=== PATIENT | female | born 1950 | race Caucasian/White ===

== ENCOUNTER → 2016-07-18 | Outpatient (CLI) | payer OTHER ==
[~2016-07-18] MED LIST: ALBU1AER9 INH; ALEN10TA3 PO; ASPI81TA28 PO; ATOR-54 PO; CHOL2000 PO; ESOM20CA PO; FERR325T5 PO; FLUT0.15 NAE; FRRS300 PO; NITR-5 PO; SERT50TA PO; SUMA50TA15 PO; VITA200C5 PO; VNTHFA/IN INH; ZNT150 PO; [UNRECOGNIZED DRUG - CODE] PO
[2016-07-18 09:42] LABS: BASO % 0.4 %; BASO ABS # 0.03 K/uL (0-0.2); COMPLETE YES; EOS % 2.7 %; HEMATOCRIT 43.9 % (37-47); IG% 0.1 %; LYMPH % 19.5 %; LYMPH ABS # 1.44 K/uL (1.2-3.4); MEAN CELL VOLUME 92.6 fL (80-100); MEAN CORPUSCULAR HEMOGLOBIN 31.4 pg (25-34); MEAN CORPUSCULAR HGB CONC 33.9 g/dl (32-36); MEAN PLATELET VOLUME 9.9 fL (7.4-10.4); MONO % 9.1 %; NEUT % 68.2 %; PLATELET COUNT 209 K/uL (130-400); RED BLOOD COUNT 4.74 M/uL (4.2-5.4); WHITE BLOOD COUNT 7.37 K/uL (4.8-10.8)
[2016-07-18 10:39] LABS: CHOLESTEROL/HDL RATIO 3.4; THYROID STIMULATING HORMONE 2.78 uIu/ml (0.300-4.500)
== END | disposition home or self-care (01) ==
LOC: C.LAB1850 08:55
PROVIDERS: ATTEND Internal Medicine
DX: E78.5 Hyperlipidemia, unspecified (principal); Z86.2 Personal history of diseases of the blood and blood-forming organs and certain disorders involving the immune mechanism; N39.41 Urge incontinence; E55.9 Vitamin D deficiency, unspecified

== ENCOUNTER 2016-08-17 09:20 | Emergency (ER) | payer OTHER ==
[~2016-08-17] VITALS: Ht 149.9 cm; Wt 71.2 kg
[~2016-08-17 09:20] MED LIST changes: -ALEN10TA3 PO; -FERR325T5 PO; -NITR-5 PO; -VITA200C5 PO; -VNTHFA/IN INH; -[UNRECOGNIZED DRUG - CODE] PO
[2016-08-17 09:30] VITALS: TEMP 36.9; Ht 149.9 cm; Wt 71.2 kg
[2016-08-17] MEDS ORDERED: ONDANSETRON INJ 2 MG/ML 2 ML VIAL IV STA (09:46)
[2016-08-17] MEDS ORDERED: SODIUM CHLORIDE 0.9% 1000ML 1,000 ML IV STA (09:46)
[2016-08-17] MEDS ORDERED: KETOROLAC TROMETHAMINE 30 MG/ML VIAL IV STA (09:46)
--- NOTE | 2016-08-17 09:51 | EMERGENCY ROOM VISIT NOTE ---
History Report prepared by Kieran: Maxwell Child Under the Supervision of: Dr. Calvin Harvey D.O. First contact with patient: 09:36 Chief Complaint: BACK PAIN Stated Complaint: BACK AND LEG PAIN History of Present Illness The patient is a 66 year old female who presents to the Emergency Room with complaints of constant back pain for the past five days. The patient's caregiver states that the patient was trying to lift a lawnmower, and she got back pain and shooting pain down her leg. The patient's caregiver additionally states that the patient had back surgery in the past. The patient states that she additionally has abdominal pain. She also states that she goes to the bathroom very frequently. The patient states that she was given Tylenol, and this has helped her.pain. Source of History: patient, caregiver Onset: five days ago Position: back Timing: constant Associated Symptoms: + abdominal pain, + urinary symptoms Review of Systems See HPI for pertinent positives & negatives. A total of 10 systems reviewed and were otherwise negative. Past Medical & Surgical Medical Problems: (1) Abdominal pain (2) Anxiety (3) Bursitis of hip, right (4) Bursitis of hip, right (5) Chest pain (6) Chest pain (7) Depression (8) GERD (gastroesophageal reflux disease) (9) High cholesterol (10) Hypertension (11) Intractable vomiting (12) Lumbar stenosis (13) Mental Retardation Nos (14) Migraine Unspecified W/O Intract Mgrn W/O Status Migrainosus (15) Osteopenia (16) Overactive bladder Surgical Problems: (1) History of lumbosacral spine surgery Social History Problems: (1) Hearing impaired Family History Heart disease Social History Smoking Status: Never Smoker Alcohol Use: none Marital Status: Housing Status: lives with significant other Occupation Status: disabled Current/Historical Medications Scheduled Albuterol Hfa (Ventolin Hfa), 2-4 PUFFS INH Q6H Alendronate Sodium (Alendronate Sodium), 10 MG PO DAILY Aspirin (Aspirin Ec), 81 MG PO DAILY Atorvastatin (Lipitor), 20 MG PO HS Esomeprazole Magnesium (Nexium), 20 MG PO DAILY Fluticasone Propionate (Nasal) (Flonase Allergy Relief), 1 SPRAY RODGER BID Nitrofurantoin Monohyd Macrocr (Macrobid), 100 MG PO BID Ranitidine HCl (Ranitidine HCl), 150 MG PO QPM Sertraline (Zoloft), 75 MG PO DAILY Sumatriptan Succinate (Imitrex), 50 MG PO PRN Vitamin E (Vitamin E), 200 MG PO DAILY Allergies Coded Allergies: Tramadol (Verified Allergy, Unknown, HEADACHE,HIVES, 05/13/16) Physical Exam Vital Signs Date Time Temp Pulse Resp B/P Pulse Ox O2 Delivery O2 Flow Rate FiO2 08/17/16 12:31 77 18 120/80 98 08/17/16 11:10 76 18 123/81 97 Room Air 08/17/16 09:30 36.9 88 18 137/98 97 Room Air Physical Exam GENERAL: Patient is awake, alert, and in no acute distress. Patient is resting comfortably and showing no signs of anxiety EYES: The conjunctivae are clear. The pupils are round and reactive. EARS, NOSE, MOUTH AND THROAT: The nose is without any evidence of any deformity. Mucous membranes are moist tongue is midline NECK: The neck is nontender and supple. RESPIRATORY: Normal respiratory effort is noted there is no evidence of wheezing rhonchi or rales CARDIOVASCULAR: Regular rate and rhythm noted there no murmurs rubs or gallops normal S1 normal S2 GASTROINTESTINAL: Left lower quadrant tenderness to palpation. No guarding or rigidity. PELVIS: The Pelvis is stable. No tenderness to palpation is noted. BACK: No midline tenderness. Left CVA tenderness to percussion. Range of motion is limited. MUSCULOSKELETAL/EXTREMITIES: There is no evidence of gross deformity full range of motion is noted in the hips and shoulders SKIN: There is no obvious evidence of any rash. There are no petechiae, pallor or cyanosis noted. NEUROLOGIC: Patient is awake alert and oriented x3 strength is symmetric patellar reflexes are 2+ bilaterally. Chilo's tendon reflex is 2+ bilaterally. Great toe raise is symmetric. Medical Decision & Procedures ER Provider Diagnostic Interpretation: CT results as stated below per my review and radiologist interpretation. CT SCAN OF THE ABDOMEN AND PELVIS WITHOUT CONTRAST CLINICAL HISTORY: left flank pain COMPARISON STUDY: 06/02/2016 TECHNIQUE: CT scan of the abdomen and pelvis was performed from the lung bases to the proximal femurs. Images are reviewed in the axial, sagittal, and coronal planes. IV contrast was not administered for this examination. CT DOSE: 352.71 mGy.cm FINDINGS: Lower chest: There are minor basilar atelectatic changes. There is a hiatal hernia. Liver: The unenhanced liver is normal in size, contour, and attenuation. There is no intrahepatic biliary ductal dilatation. Gallbladder: Unremarkable. Spleen: Normal in size and attenuation. Pancreas: Unremarkable. Adrenal glands: Unremarkable. Kidneys: There is a 2 mm left renal calcification. There is no hydronephrosis. No ureteral or bladder calculi are visualized. Bowel: There are no transition zones indicate bowel obstruction. There is no acute diverticulitis. There are no findings to indicate acute appendicitis. Peritoneum: There is no intraperitoneal free air or abdominal ascites. Vasculature: The abdominal aorta is normal in course and caliber. Adenopathy: None. Pelvic viscera: The bladder, and pelvic viscera are unremarkable. Skeletal structures: There are postsurgical changes in the lumbar spine. IMPRESSION: 1. 2 mm left renal calcification 2. No ureteral or bladder calculi identified. No evidence of hydronephrosis 3. No evidence of bowel obstruction. No evidence of free air 4. No evidence of acute appendicitis. No evidence of acute diverticulitis. Electronically signed by: Josemanuel Ziegler M.D. 08/17/2016 10:34 AM Dictated Date/Time: 08/17/2016 10:29 AM Laboratory Results 08/17/16 10:00 Red Blood Count 4.60, Mean Corpuscular Volume 93.3, Mean Corpuscular Hemoglobin 31.3, Mean Corpuscular Hemoglobin Concent 33.6, Mean Platelet Volume 10.0, Neutrophils (%) (Auto) 72.2, Lymphocytes (%) (Auto) 18.6, Monocytes (%) (Auto) 6.8, Eosinophils (%) (Auto) 1.9, Basophils (%) (Auto) 0.4, Neutrophils # (Auto) 5.30, Lymphocytes # (Auto) 1.37, Monocytes # (Auto) 0.50, Eosinophils # (Auto) 0.14, Basophils # (Auto) 0.03 08/17/16 10:00 Test 08/17/16 10:00 08/17/16 11:17 White Blood Count 7.35 K/uL (4.8-10.8) Red Blood Count 4.60 M/uL (4.2-5.4) Hemoglobin 14.4 g/dL (12.0-16.0) Hematocrit 42.9 % (37-47) Mean Corpuscular Volume 93.3 fL (80-100) Mean Corpuscular Hemoglobin 31.3 pg (25-34) Mean Corpuscular Hemoglobin Concent 33.6 g/dl (32-36) Platelet Count 200 K/uL (130-400) Mean Platelet Volume 10.0 fL (7.4-10.4) Neutrophils (%) (Auto) 72.2 % Lymphocytes (%) (Auto) 18.6 % Monocytes (%) (Auto) 6.8 % Eosinophils (%) (Auto) 1.9 % Basophils (%) (Auto) 0.4 % Neutrophils # (Auto) 5.30 K/uL (1.4-6.5) Lymphocytes # (Auto) 1.37 K/uL (1.2-3.4) Monocytes # (Auto) 0.50 K/uL (0.11-0.59) Eosinophils # (Auto) 0.14 K/uL (0-0.5) Basophils # (Auto) 0.03 K/uL (0-0.2) RDW Standard Deviation 45.6 fL (36.4-46.3) RDW Coefficient of Variation 13.4 % (11.5-14.5) Immature Granulocyte % (Auto) 0.1 % Immature Granulocyte # (Auto) 0.01 K/uL (0.00-0.02) Anion Gap 9.0 mmol/L (3-11) Est Creatinine Clear Calc Drug Dose 54.0 ml/min Estimated GFR () 79.4 Estimated GFR (Non- 68.5 BUN/Creatinine Ratio 15.1 (10-20) Calcium Level 8.9 mg/dl (8.5-10.1) Total Bilirubin 0.4 mg/dl (0.2-1) Direct Bilirubin < 0.1 mg/dl (0-0.2) Aspartate Amino Transf (AST/SGOT) 21 U/L (15-37) Alanine Aminotransferase (ALT/SGPT) 31 U/L (12-78) Alkaline Phosphatase 121 U/L (45-117) Total Protein 7.1 gm/dl (6.4-8.2) Albumin 3.9 gm/dl (3.4-5.0) Lipase 205 U/L (73-393) Urine Color YELLOW Urine Appearance CLEAR (CLEAR) Urine pH 6.5 (4.5-7.5) Urine Specific [place] 1.004 (1.000-1.030) Urine Protein NEG (NEG) Urine Glucose (UA) NEG (NEG) Urine Ketones NEG (NEG) Urine Occult Blood TRACE (NEG) Urine Nitrite NEG (NEG) Urine Bilirubin NEG (NEG) Urine Urobilinogen NEG (NEG) Urine Leukocyte Esterase MODERATE (NEG) Urine WBC (Auto) 1-5 /hpf (0-5) Urine RBC (Auto) 5-10 /hpf (0-4) Urine Hyaline Casts (Auto) 0 /lpf (0-5) Urine Epithelial Cells (Auto) >30 /lpf (0-5) Urine Bacteria (Auto) NEG (NEG) Laboratory results per my review. Medications Administered Medications (Trade) Dose Ordered Sig/Oliver Route Start Time Stop Time Status Last Admin Dose Admin Ketorolac Tromethamine 30 mg 30 mg NOW STAT IV 08/17/16 09:46 08/17/16 09:48 DC 08/17/16 10:08 30 MG Sodium Chloride (Nss 1000ml) 1,000 ml @ 999 mls/hr Q1H1M STAT IV 08/17/16 09:46 08/17/16 10:46 DC 08/17/16 10:07 999 MLS/HR Ondansetron HCl (Zofran Inj) 4 mg NOW STAT IV 08/17/16 09:46 08/17/16 09:48 DC 08/17/16 10:07 4 MG Nitrofurantoin Macrocrystals (Macrobid Cap) 100 mg NOW STAT PO 08/17/16 12:04 08/17/16 12:05 DC 08/17/16 12:24 100 MG ED Course 0936: The patient was evaluated in room B11. A complete history and physical examination were performed. 0946: Zofran Inj 4mg IV, NSS 1,000 ml @ 999 mls/hr IV, Toradol Inj 30mg IV 1204: Macrobid Cap 100mg PO 1209: Upon reevaluation, the patient is feeling better. I discussed the results and treatment plan with her. She verbalized agreement of the treatment plan. She was discharged home. Medical Decision Differential diagnosis: Etiologies such as musculoskeletal, disc herniation, fracture, aortic disease, metastatic disease, cord compression, discitis, infection, renal colic, gastrointestinal, acute exacerbation of chronic back pain, sciatica, cauda equina, as well as others were entertained. Nursing notes reviewed. Additional history is obtained from the caregiver. The patient is a 66-year-old female who presented to the emergency department with a caregiver for an evaluation of left flank pain. The patient has back pain which she has had in the past. She doesn't a history of chronic back pain. The patient did not have midline pain. She did have CVA tenderness to percussion. I was wondering whether or not the patient could have a kidney stone or urinary infection. Her reflexes appeared intact. She was able to ambulate without difficulty. I discussed the patient's laboratory and radiographic studies with her. She was found have signs of possible urinary tract infection and was started on antibiotics. She was treated with IV fluids IV pain medication in the emergency department. On subsequent reevaluation she was feeling much better. She was encouraged to rest and avoid any strenuous activity. She was also encouraged to continue all medications as prescribed. She was also encouraged to follow-up with primary care physician for reevaluation this week and for possible referral to her back specialist if symptoms don't improve. Otherwise she was encouraged to return to the emergency department if symptoms worsen or if need arises. Impression Primary Impression: Left-sided back pain Additional Impression: UTI (urinary tract infection) Scribe Attestation The scribe's documentation has been prepared under my direction and personally reviewed by me in its entirety. I confirm that the note above accurately reflects all work, treatment, procedures, and medical decision making performed by me. Departure Information Dispostion Home / Self-Care Prescriptions Nitrofurantoin Monohyd Macrocr (Macrobid) 100 Mg Cap 100 MG PO BID, #14 CAP Prov: Calvin Harvey, DO 08/17/16 Referrals RV. Gallagher MD (PCP) Forms HOME CARE DOCUMENTATION FORM, IMPORTANT VISIT INFORMATION Patient Instructions ED Back Pain Acute Chronic, My [facility], Urinary Tract Infecs Women Additional Instructions Continue all medications as prescribed. Continue using Motrin and Tylenol as directed for pain. Follow-up with your primary care physician for further evaluation of back pain continues. Avoid any strenuous activity or heavy lifting. Problem Qualifiers
--- NOTE | 2016-08-17 10:36 | DIAGNOSTIC IMAGING REPORT ---
CT SCAN OF THE ABDOMEN AND PELVIS WITHOUT CONTRAST CLINICAL HISTORY: left flank pain COMPARISON STUDY: 06/02/2016 TECHNIQUE: CT scan of the abdomen and pelvis was performed from the lung bases to the proximal femurs. Images are reviewed in the axial, sagittal, and coronal planes. IV contrast was not administered for this examination. CT DOSE: 352.71 mGy.cm FINDINGS: Lower chest: There are minor basilar atelectatic changes. There is a hiatal hernia. Liver: The unenhanced liver is normal in size, contour, and attenuation. There is no intrahepatic biliary ductal dilatation. Gallbladder: Unremarkable. Spleen: Normal in size and attenuation. Pancreas: Unremarkable. Adrenal glands: Unremarkable. Kidneys: There is a 2 mm left renal calcification. There is no hydronephrosis. No ureteral or bladder calculi are visualized. Bowel: There are no transition zones indicate bowel obstruction. There is no acute diverticulitis. There are no findings to indicate acute appendicitis. Peritoneum: There is no intraperitoneal free air or abdominal ascites. Vasculature: The abdominal aorta is normal in course and caliber. Adenopathy: None. Pelvic viscera: The bladder, and pelvic viscera are unremarkable. Skeletal structures: There are postsurgical changes in the lumbar spine. IMPRESSION: 1. 2 mm left renal calcification 2. No ureteral or bladder calculi identified. No evidence of hydronephrosis 3. No evidence of bowel obstruction. No evidence of free air 4. No evidence of acute appendicitis. No evidence of acute diverticulitis. Electronically signed by: Josemanuel Ziegler M.D. 08/17/2016 10:34 AM Dictated Date/Time: 08/17/2016 10:29 AM
[2016-08-17 10:47] LABS: BASO % 0.4 %; BASO ABS # 0.03 K/uL (0-0.2); COMPLETE YES; EOS % 1.9 %; HEMATOCRIT 42.9 % (37-47); IG% 0.1 %; LYMPH % 18.6 %; LYMPH ABS # 1.37 K/uL (1.2-3.4); MEAN CELL VOLUME 93.3 fL (80-100); MEAN CORPUSCULAR HEMOGLOBIN 31.3 pg (25-34); MEAN CORPUSCULAR HGB CONC 33.6 g/dl (32-36); MONO % 6.8 %; NEUT % 72.2 %; PLATELET COUNT 200 K/uL (130-400); WHITE BLOOD COUNT 7.35 K/uL (4.8-10.8)
[2016-08-17] MEDS ORDERED: VITA200C5 PO (10:55)
[2016-08-17] MEDS ORDERED: VNTHFA/IN INH (10:55)
[2016-08-17] MEDS ORDERED: ALEN10TA3 PO (10:55)
[2016-08-17 11:08] LABS: ALT/SGPT 31 U/L (12-78); AST/SGOT 21 U/L (15-37); BLOOD UREA NITROGEN 13 mg/dl (7-18); BUN/CREATININE RATIO 15.1 (10-20); CALCIUM 8.9 mg/dl (8.5-10.1); CARBON DIOXIDE 27 mmol/L (21-32); CHLORIDE 106 mmol/L (98-107); CREATININE 0.88 mg/dl (0.60-1.20); GLUCOSE 103 mg/dl (70-99); POTASSIUM 3.7 mmol/L (3.5-5.1); SODIUM 142 mmol/L (136-145)
[2016-08-17 11:10] LABS: ALKALINE PHOSPHATASE 121 U/L (45-117)
[2016-08-17 11:51] LABS: MANUAL MICROSCOPIC REQUIRED? NO; REVIEW REQ? NO; URINE APPEARANCE CLEAR (CLEAR); URINE BILIRUBIN NEG (NEG); URINE COLOR YELLOW; URINE EPITHELIAL CELL AUTO >30 /lpf (0-5); URINE NITRITE NEG (NEG); URINE PH 6.5 (4.5-7.5); URINE SPECIFIC GRAVITY 1.004 (1.000-1.030); UROBILINOGEN NEG (NEG)
[2016-08-17] MEDS ORDERED: NITROFURANTOIN MONOHYDRATE 100 MG CAP PO STA (12:04)
[2016-08-17] MEDS ORDERED: NITR-5 PO (12:05)
[2016-08-17 12:31] VITALS: BP 120/80; PULSE 77; O2SAT 98
== END 2016-08-17 12:32 | disposition home or self-care (01) ==
LOC: C.EDB 09:22
DX: M54.5 Low back pain (principal); N39.0 Urinary tract infection, site not specified; N20.0 Calculus of kidney; F41.9 Anxiety disorder, unspecified; F32.9 Major depressive disorder, single episode, unspecified; K21.9 Gastro-esophageal reflux disease without esophagitis; E78.00 Pure hypercholesterolemia, unspecified; I10 Essential (primary) hypertension; F79 Unspecified intellectual disabilities; H91.90 Unspecified hearing loss, unspecified ear; Z82.49 Family history of ischemic heart disease and other diseases of the circulatory system; Z79.82 Long term (current) use of aspirin; Z88.5 Allergy status to narcotic agent

== ENCOUNTER → 2016-08-24 | Outpatient (CLI) | payer OTHER ==
[~2016-08-24] MED LIST changes: -ALBU1AER9 INH; +ALEN10TA3 PO; +FERR325T5 PO; -FRRS300 PO; +NITR-5 PO; +VITA200C5 PO; +VNTHFA/IN INH; +[UNRECOGNIZED DRUG - CODE] PO
== END | disposition home or self-care (01) ==
LOC: C.LAB1850 11:30
PROVIDERS: ATTEND Internal Medicine
DX: Z00.00 Encounter for general adult medical examination without abnormal findings (principal); Z11.59 Encounter for screening for other viral diseases

== ENCOUNTER → 2017-01-12 | Outpatient (CLI) | payer OTHER ==
[2017-01-12 16:47] LABS: URINE APPEARANCE CLEAR (CLEAR); URINE BILIRUBIN NEG (NEG); URINE COLOR YELLOW; URINE EPITHELIAL CELL AUTO >30 /lpf (0-5); URINE NITRITE NEG (NEG); URINE SPECIFIC GRAVITY 1.022 (1.000-1.030); UROBILINOGEN NEG (NEG); ZZUR CULT IF INDIC CLEAN CATCH YES
[2017-01-12 16:50] LABS: MANUAL MICROSCOPIC REQUIRED? NO; REVIEW REQ? YES
== END | disposition home or self-care (01) ==
LOC: C.LABSPEC 16:08
PROVIDERS: ATTEND Physician Assistant
DX: R10.9 Unspecified abdominal pain (principal)

== ENCOUNTER → 2017-01-17 | Outpatient (CLI) | payer OTHER ==
--- NOTE | 2017-01-17 10:04 | DIAGNOSTIC IMAGING REPORT ---
RENAL ULTRASOUND CLINICAL HISTORY: Acute right flank pain. Abnormal urinalysis. COMPARISON STUDY: CT of the abdomen and pelvis August 17, 2016. TECHNIQUE: Sonography of the kidneys and the urinary bladder was performed. FINDINGS: The right kidney measures 9.7 x 3.9 x 4 cm and the left measures 9.4 x 4.7 x 5.3 cm. There is mild renal cortical thinning. There is no hydronephrosis. Note is made of a 3 mm left renal calculus. Bladder was suboptimally assessed due to underdistention. Neither ureteral jet was identified. IMPRESSION: 1. No hydronephrosis. 2. Suspected 3 mm left renal calculus. Electronically signed by: Eric Lyles M.D. 01/17/2017 10:03 AM Dictated Date/Time: 01/17/2017 10:01 AM
== END | disposition home or self-care (01) ==
LOC: C.ULTR 09:18
PROVIDERS: ATTEND Physician Assistant
DX: R10.9 Unspecified abdominal pain (principal)

== ENCOUNTER 2017-01-18 07:55 | Emergency (ER) | payer OTHER ==
[~2017-01-18] VITALS: Ht 149.9 cm; Wt 69.8 kg
[~2017-01-18 07:55] MED LIST changes: -CHOL2000 PO; -FERR325T5 PO; -[UNRECOGNIZED DRUG - CODE] PO
[2017-01-18 07:59] VITALS: TEMP 36.6; Ht 149.9 cm; Wt 69.8 kg
--- NOTE | 2017-01-18 08:11 | EMERGENCY ROOM VISIT NOTE ---
History Report prepared by iKeran: Khanh Reed Under the Supervision of: Dr. James Chahal M.D. First contact with patient: 08:02 Chief Complaint: KIDNEY STONE Stated Complaint: LOWER BACK/SIDE PAIN History of Present Illness The patient is a 66 year old female who presents to the Emergency Room with complaints of constant, sharp, right lower quadrant pain beginning a week ago. She currently rates her discomfort a 6/10 in severity. The patient states that a week ago she was placed on Macrobid for hematuria, and her last dose was yesterday. The patient's daughter states that she had a urine analysis as well that showed gross amounts of blood and bacteria. The patient's records state that she was in the ED yesterday for similar symptoms and was told she had a kidney stone. They note that her ultrasound yesterday showed a left renal calculus. She reports that for the past week she has also been experiencing dysuria and a mildly decreased appetite. The patient notes that she has been taking Tylenol for pain, and her last dose was a few days ago. She states that she did not take Tylenol yesterday or today because it was not helping. The patient denies a history of kidney stones. She also denies vomiting and having a fever. She notes that 8 months ago she had back surgery. Source of History: patient, family Onset: week ago Position: abdomen (RLQ) Symptom Intensity: 6/10 Quality: sharp Timing: constant Associated Symptoms: + urinary symptoms (dysuria), No fevers, No vomiting Note: Associated symptoms: mildly decreased appetite Review of Systems See HPI for pertinent positives & negatives. A total of 10 systems reviewed and were otherwise negative. Past Medical & Surgical Medical Problems: (1) Abdominal pain (2) Anxiety (3) Bursitis of hip, right (4) Bursitis of hip, right (5) Chest pain (6) Chest pain (7) Depression (8) GERD (gastroesophageal reflux disease) (9) High cholesterol (10) Hypertension (11) Intractable vomiting (12) Lumbar stenosis (13) Mental Retardation Nos (14) Migraine Unspecified W/O Intract Mgrn W/O Status Migrainosus (15) Osteopenia (16) Overactive bladder Surgical Problems: (1) History of lumbosacral spine surgery Social History Problems: (1) Hearing impaired Family History Heart disease Social History Smoking Status: Never Smoker Alcohol Use: none Marital Status: Housing Status: lives with significant other Occupation Status: disabled Current/Historical Medications Scheduled Albuterol Hfa (Ventolin Hfa), 2-4 PUFFS INH Q6H Aspirin (Aspirin Ec), 81 MG PO DAILY Atorvastatin (Lipitor), 20 MG PO HS Cholecalciferol (Vitamin D3), 2,000 UNITS PO QAM Esomeprazole Magnesium (Nexium), 20 MG PO DAILY Ferrous Sulfate (Ferrous Sulfate), 325 MG PO WK Fluticasone Propionate (Nasal) (Flonase Allergy Relief), 1 SPRAY RODGER BID Ranitidine HCl (Ranitidine HCl), 150 MG PO QPM Sertraline (Zoloft), 75 MG PO DAILY Sumatriptan Succinate (Imitrex), 50 MG PO PRN Vitamin E (Vitamin E), 400 MG PO DAILY Zoledronic Acid (Zoledronic Acid), 4 MG PO QPM Allergies Coded Allergies: Tramadol (Verified Allergy, Unknown, HEADACHE,HIVES, 01/18/17) Physical Exam Vital Signs Date Time Temp Pulse Resp B/P (MAP) Pulse Ox O2 Delivery O2 Flow Rate FiO2 01/18/17 10:54 74 18 119/72 98 01/18/17 10:03 72 12 127/78 97 Room Air 01/18/17 07:59 36.6 88 18 151/88 96 Room Air Physical Exam GENERAL: Patient is well appearing and in mild distress. HEENT: No acute trauma, normocephalic atraumatic, mucous membranes moist, no nasal congestion, no scleral icterus. NECK: No stridor, no adenopathy, no meningismus, trachea is midline. LUNGS: No dyspnea. Clear to auscultation and equal bilaterally. No wheeze, no rhonchi. HEART: Regular rate and rhythm. No murmurs, rubs, gallops appreciated. ABDOMEN: Soft, mild right lower quadrant is tender to palpation, bowel sounds positive, no masses appreciated, no peritonitis. BACK: No midline tenderness, Mild CVA tenderness to palpation EXTREMITIES: Normal motion all extremities, no cyanosis, no edema. NEUROLOGIC: Awake, interactive, hard of hearing, no acute motor or sensory deficits, no focal weakness, cranial nerves grossly intact. SKIN: No rash, no jaundice, no diaphoresis. Medical Decision & Procedures ER Provider Diagnostic Interpretation: CT results as stated below per interpretation by me and the radiologist: ABD/PELVIS IV CONTRAST ONLY CT DOSE: 367.76 mGy.cm HISTORY: Flank pain RLQ pain TECHNIQUE: Multiaxial CT images of the abdomen and pelvis were performed following the use of intravenous contrast. A dose lowering technique was utilized adhering to the principles of ALARA. COMPARISON STUDY: 08/17/2016 FINDINGS: Stable fixed hiatal hernia. Liver spleen and pancreas are uniform. Kidneys negative for hydronephrosis. Adrenal glands are normal. Nonobstructive bowel pattern. Normal appendix. Bladder is midline. Postoperative changes consistent with L3-L5 laminectomy and fusion. Maximum appendiceal diameter is 5 mm and is air-containing. No significant periappendiceal inflammatory change. IMPRESSION: No acute process in the abdomen or pelvis. No change from the prior study. Fixed hiatal hernia unchanged The above report was generated using voice recognition software. It may contain grammatical, syntax or spelling errors. Electronically signed by: Jeffry Ojeda M.D. 01/18/2017 9:12 AM Dictated Date/Time: 01/18/2017 9:03 AM Laboratory Results 01/18/17 08:05 Red Blood Count 4.82, Mean Corpuscular Volume 94.4, Mean Corpuscular Hemoglobin 30.7, Mean Corpuscular Hemoglobin Concent 32.5, Mean Platelet Volume 9.7, Neutrophils (%) (Auto) 79.0, Lymphocytes (%) (Auto) 8.2, Monocytes (%) (Auto) 6.5, Eosinophils (%) (Auto) 5.7, Basophils (%) (Auto) 0.2, Neutrophils # (Auto) 7.30, Lymphocytes # (Auto) 0.76, Monocytes # (Auto) 0.60, Eosinophils # (Auto) 0.53, Basophils # (Auto) 0.02 01/18/17 08:05 Test 01/18/17 08:05 01/18/17 10:00 White Blood Count 9.25 K/uL (4.8-10.8) Red Blood Count 4.82 M/uL (4.2-5.4) Hemoglobin 14.8 g/dL (12.0-16.0) Hematocrit 45.5 % (37-47) Mean Corpuscular Volume 94.4 fL (80-100) Mean Corpuscular Hemoglobin 30.7 pg (25-34) Mean Corpuscular Hemoglobin Concent 32.5 g/dl (32-36) Platelet Count 197 K/uL (130-400) Mean Platelet Volume 9.7 fL (7.4-10.4) Neutrophils (%) (Auto) 79.0 % Lymphocytes (%) (Auto) 8.2 % Monocytes (%) (Auto) 6.5 % Eosinophils (%) (Auto) 5.7 % Basophils (%) (Auto) 0.2 % Neutrophils # (Auto) 7.30 K/uL (1.4-6.5) Lymphocytes # (Auto) 0.76 K/uL (1.2-3.4) Monocytes # (Auto) 0.60 K/uL (0.11-0.59) Eosinophils # (Auto) 0.53 K/uL (0-0.5) Basophils # (Auto) 0.02 K/uL (0-0.2) RDW Standard Deviation 47.4 fL (36.4-46.3) RDW Coefficient of Variation 13.7 % (11.5-14.5) Immature Granulocyte % (Auto) 0.4 % Immature Granulocyte # (Auto) 0.04 K/uL (0.00-0.02) Anion Gap 5.0 mmol/L (3-11) Est Creatinine Clear Calc Drug Dose 56.7 ml/min Estimated GFR () 85.2 Estimated GFR (Non- 73.5 BUN/Creatinine Ratio 18.9 (10-20) Calcium Level 8.9 mg/dl (8.5-10.1) Total Bilirubin 0.4 mg/dl (0.2-1) Direct Bilirubin 0.1 mg/dl (0-0.2) Aspartate Amino Transf (AST/SGOT) 62 U/L (15-37) Alanine Aminotransferase (ALT/SGPT) 101 U/L (12-78) Alkaline Phosphatase 138 U/L (45-117) Total Protein 7.2 gm/dl (6.4-8.2) Albumin 3.4 gm/dl (3.4-5.0) Lipase 368 U/L (73-393) Urine Color YELLOW Urine Appearance CLEAR (CLEAR) Urine pH 7.5 (4.5-7.5) Urine Specific [place] > 1.045 (1.000-1.030) Urine Protein NEG (NEG) Urine Glucose (UA) NEG (NEG) Urine Ketones NEG (NEG) Urine Occult Blood 1+ (NEG) Urine Nitrite NEG (NEG) Urine Bilirubin NEG (NEG) Urine Urobilinogen NEG (NEG) Urine Leukocyte Esterase NEG (NEG) Urine WBC (Auto) 1-5 /hpf (0-5) Urine RBC (Auto) 0-4 /hpf (0-4) Urine Hyaline Casts (Auto) 1-5 /lpf (0-5) Urine Epithelial Cells (Auto) 10-20 /lpf (0-5) Urine Bacteria (Auto) NEG (NEG) Laboratory results as reviewed by me. Medications Administered Medications (Trade) Dose Ordered Sig/Oliver Route Start Time Stop Time Status Last Admin Dose Admin Sodium Chloride 500 ml @ 999 mls/hr Q31M STAT IV 01/18/17 08:18 01/18/17 08:48 DC 01/18/17 08:18 999 MLS/HR Sodium Chloride 1,000 ml @ 999 mls/hr Q1H1M STAT IV 01/18/17 09:49 01/18/17 10:49 DC 01/18/17 09:49 999 MLS/HR ED Course 0804: The patient was evaluated in room A10. A complete history and physical exam was performed. 0818: Ordered Sodium Chloride 500 ml @ 999 mls/hr IV 0948: I reevaluated the patient. She has not produced a urine sample because she has been unable to void. Nursing states that she has had 700mL of saline. 0949: Ordered Sodium Chloride 1000 ml @ 999 mls/hr IV 1048: Reevaluated the patient. She is feeling better. Discussed results and discharge instructions: she verbalized understanding and agreement. The patient is ready for discharge. Medical Decision Differential: Appendicitis, Ovarian Torsion, , MSK, Diverticulitis, UTI, Renal Colic, Bowel Obstruction, Aortic Pathology, amongst other pathologies entertained. 66 yr old female arrives with ongoing right sided pain for over a week. She does not appear in very much distress and on exam with only mild RLQ TTP. Given prolonged symptoms and multiple testing prior to ED felt that going ahead with CT reasonable which revealed no acute findings. Labs did reveal mild LFT elevation above her baseline. She has absolutely no TTP over RUQ nor epigastrium and her CT reveals not GB abnormalities. She recently stopped macrobid, known to elevated LFTs which may be cause of this. I have advised she have LFTs rechecked in near future to verify they are improving. I have discussed need to RTED if worsening or no improvement. Stressed PCP follow up. Medication Reconcilliation Current Medication List: was personally reviewed by me Blood Pressure Screening Patient's blood pressure: Normal blood pressure Blood pressure disposition: Did not require urgent referral Impression Primary Impression: Abdominal pain, RLQ (right lower quadrant) Additional Impression: Elevated liver enzymes Scribe Attestation The scribe's documentation has been prepared under my direction and personally reviewed by me in its entirety. I confirm that the note above accurately reflects all work, treatment, procedures, and medical decision making performed by me. Departure Information Dispostion Home / Self-Care Referrals RV. Gallagher MD (PCP) Patient Instructions My [facility] Additional Instructions Do not take any more macrobid. Avoid use of Tylenol (acetaminophen) as this can worsen liver tests. Motrin, ibuprofen and other NSAIDs are fine. Follow up with primary provider in 3-7 days for recheck and likely repeat labs. Return if worsening pain, fevers, vomiting, change in pain, altered mental status or other concerns. Problem Qualifiers
[2017-01-18] MEDS ORDERED: SODIUM CHLORIDE 0.9% 500ML 500 ML IV STA (08:18)
[2017-01-18 08:28] LABS: BASO % 0.2 %; BASO ABS # 0.02 K/uL (0-0.2); COMPLETE YES; EOS % 5.7 %; HEMATOCRIT 45.5 % (37-47); IG% 0.4 %; LYMPH % 8.2 %; LYMPH ABS # 0.76 K/uL (1.2-3.4); MEAN CELL VOLUME 94.4 fL (80-100); MEAN CORPUSCULAR HEMOGLOBIN 30.7 pg (25-34); MEAN CORPUSCULAR HGB CONC 32.5 g/dl (32-36); MEAN PLATELET VOLUME 9.7 fL (7.4-10.4); MONO % 6.5 %; PLATELET COUNT 197 K/uL (130-400); RED BLOOD COUNT 4.82 M/uL (4.2-5.4); WHITE BLOOD COUNT 9.25 K/uL (4.8-10.8)
[2017-01-18] MEDS ORDERED: OPTIRAY 320 IV PRN (08:30)
[2017-01-18 08:36] LABS: BUN/CREATININE RATIO 18.9 (10-20); CALCIUM 8.9 mg/dl (8.5-10.1); CREATININE 0.83 mg/dl (0.60-1.20); POTASSIUM 3.5 mmol/L (3.5-5.1)
--- NOTE | 2017-01-18 09:13 | DIAGNOSTIC IMAGING REPORT ---
ABD/PELVIS IV CONTRAST ONLY CT DOSE: 367.76 mGy.cm HISTORY: Flank pain RLQ pain TECHNIQUE: Multiaxial CT images of the abdomen and pelvis were performed following the use of intravenous contrast. A dose lowering technique was utilized adhering to the principles of ALARA. COMPARISON STUDY: 08/17/2016 FINDINGS: Stable fixed hiatal hernia. Liver spleen and pancreas are uniform. Kidneys negative for hydronephrosis. Adrenal glands are normal. Nonobstructive bowel pattern. Normal appendix. Bladder is midline. Postoperative changes consistent with L3-L5 laminectomy and fusion. Maximum appendiceal diameter is 5 mm and is air-containing. No significant periappendiceal inflammatory change. IMPRESSION: No acute process in the abdomen or pelvis. No change from the prior study. Fixed hiatal hernia unchanged The above report was generated using voice recognition software. It may contain grammatical, syntax or spelling errors. Electronically signed by: Jeffry Ojeda M.D. 01/18/2017 9:12 AM Dictated Date/Time: 01/18/2017 9:03 AM
[2017-01-18] MEDS ORDERED: [UNRECOGNIZED DRUG - CODE] PO (09:29)
[2017-01-18] MEDS ORDERED: FERR325T5 PO (09:29)
[2017-01-18] MEDS ORDERED: CHOL2000 PO (09:29)
[2017-01-18] MEDS ORDERED: SODIUM CHLORIDE 0.9% 1000ML 1,000 ML IV STA (09:49)
[2017-01-18 10:16] LABS: URINE APPEARANCE CLEAR (CLEAR); URINE BILIRUBIN NEG (NEG); URINE COLOR YELLOW; URINE NITRITE NEG (NEG); URINE PH 7.5 (4.5-7.5); URINE SPECIFIC GRAVITY > 1.045 (1.000-1.030); UROBILINOGEN NEG (NEG); ZZUR CULT IF INDIC CLEAN CATCH NO
[2017-01-18 10:17] LABS: MANUAL MICROSCOPIC REQUIRED? NO; REVIEW REQ? NO
[2017-01-18 10:54] VITALS: BP 119/72; PULSE 74; O2SAT 98
== END 2017-01-18 10:56 | disposition home or self-care (01) ==
LOC: C.EDB 07:57 → C.EDA 10:56
DX: R10.31 Right lower quadrant pain (principal); R74.8 Abnormal levels of other serum enzymes; F41.9 Anxiety disorder, unspecified; F32.9 Major depressive disorder, single episode, unspecified; K21.9 Gastro-esophageal reflux disease without esophagitis; E78.00 Pure hypercholesterolemia, unspecified; F79 Unspecified intellectual disabilities; M85.80 Other specified disorders of bone density and structure, unspecified site; N32.81 Overactive bladder; H91.90 Unspecified hearing loss, unspecified ear; Z79.82 Long term (current) use of aspirin; Z79.899 Other long term (current) drug therapy

== ENCOUNTER → 2017-01-26 | Outpatient (CLI) | payer OTHER ==
[~2017-01-26] MED LIST changes: -ALEN10TA3 PO; +CHOL2000 PO; +FERR325T5 PO; -NITR-5 PO; +[UNRECOGNIZED DRUG - CODE] PO
[2017-01-26 12:09] LABS: URINE APPEARANCE CLEAR (CLEAR); URINE BILIRUBIN NEG (NEG); URINE COLOR YELLOW; URINE NITRITE NEG (NEG); URINE PH 5.5 (4.5-7.5); URINE SPECIFIC GRAVITY 1.012 (1.000-1.030); UROBILINOGEN NEG (NEG); ZZUR CULT IF INDIC CLEAN CATCH NO
[2017-01-26 12:13] LABS: MANUAL MICROSCOPIC REQUIRED? NO; REVIEW REQ? NO
[2017-01-26 12:46] LABS: ALKALINE PHOSPHATASE 139 U/L (45-117); ALT/SGPT 37 U/L (12-78); AST/SGOT 22 U/L (15-37)
== END | disposition home or self-care (01) ==
LOC: C.LAB1850 11:11
PROVIDERS: ATTEND Nurse Practitioner Adult Health
DX: R10.31 Right lower quadrant pain (principal); R74.8 Abnormal levels of other serum enzymes

== ENCOUNTER → 2017-03-06 | Outpatient (CLI) | payer OTHER | END | disposition home or self-care (01) | LOC: C.LAB1850 07:56 | PROVIDERS: ATTEND Nurse Practitioner Adult Health | DX: R74.8 Abnormal levels of other serum enzymes (principal) ==

== ENCOUNTER 2017-04-12 16:19 | Emergency (ER) | payer OTHER ==
[~2017-04-12] VITALS: Ht 149.9 cm; Wt 68.1 kg
[~2017-04-12 16:19] MED LIST changes: -ONDA4TAB10 SL
[2017-04-12 16:23] VITALS: TEMP 36.5; Ht 149.9 cm; Wt 68.1 kg
[2017-04-12] MEDS ORDERED: SODIUM CHLORIDE 0.9% 1000ML 1,000 ML IV STA (16:31)
[2017-04-12] MEDS ORDERED: ONDANSETRON INJ 2 MG/ML 2 ML VIAL IV STA (16:31)
[2017-04-12] MEDS ORDERED: ACETAMINOPHEN 325 MG TAB PO STA (16:31)
--- NOTE | 2017-04-12 16:42 | EMERGENCY ROOM VISIT NOTE ---
History Report prepared by Kieran: Eric Gurrola Under the Supervision of: Dr. Matt Cneteno M.D. First contact with patient: 16:29 Chief Complaint: URINARY SYMPTOMS Stated Complaint: URINE INCONTINENT,FREQUENT URINATION,VOMITING Nursing Triage Summary: Pt with caregiver from [facility]. Pt seen at PCP today, they think she has a UTI. After pt left the office, fam to have a headache, n/v, incontinent of diarrhea. History of Present Illness The patient is a 67 year old female with a history of frequent UTI's who presents to the Emergency Room with complaints of a worsening illness that started yesterday. Per the patient's caregiver, the patient had frequent urination yesterday and had one episode of urinary incontinence. The patient notes that overnight she had episodes of diarrhea. The patient was brought to see her primary care physician earlier today, and was diagnosed with a UTI and was put on Bactrim. She has not taken a dose yet. The patient did provide a urine sample there, and was noted to have blood and bacteria in her urine. Per the patient's caregiver, around a half hour after leaving the office, the patient had one episode of vomiting and complained of nausea and a headache. The patient was noted to be sweating before the vomiting spell. The patient's caregiver called the patient's primary care physician, and was advised to bring the patient here for evaluation. The patient was noted to be more quiet today than normal, per the caregiver. The patient did not have problems the day before yesterday. Currently, she says that she has no pain, other than a headache. Any known recent head injuries were denied. Source of History: patient, caregiver Onset: Yesterday Position: other (global - illness) Timing: worsening Associated Symptoms: + headache, + nausea, + vomiting, + diarrhea, + urinary symptoms Note: Associated symptoms: Noted to be more quiet today than normal. Any recent head injuries denied. Review of Systems See HPI for pertinent positives & negatives. A total of 10 systems reviewed and were otherwise negative. Past Medical & Surgical Medical Problems: (1) Abdominal pain (2) Anxiety (3) Bursitis of hip, right (4) Bursitis of hip, right (5) Chest pain (6) Chest pain (7) Depression (8) GERD (gastroesophageal reflux disease) (9) High cholesterol (10) Hypertension (11) Intractable vomiting (12) Lumbar stenosis (13) Mental Retardation Nos (14) Migraine Unspecified W/O Intract Mgrn W/O Status Migrainosus (15) Osteopenia (16) Overactive bladder Surgical Problems: (1) History of lumbosacral spine surgery Social History Problems: (1) Hearing impaired Family History Heart disease Social History Smoking Status: Never Smoker Alcohol Use: none Marital Status: Housing Status: lives with significant other Occupation Status: disabled Current/Historical Medications Scheduled Albuterol Hfa (Ventolin Hfa), 2-4 PUFFS INH Q6H Aspirin (Aspirin Ec), 81 MG PO DAILY Atorvastatin (Lipitor), 20 MG PO HS Cholecalciferol (Vitamin D3), 2,000 UNITS PO QAM Esomeprazole Magnesium (Nexium), 20 MG PO DAILY Ferrous Sulfate (Ferrous Sulfate), 325 MG PO WK Fluticasone Propionate (Nasal) (Flonase Allergy Relief), 1 SPRAY RODGER BID Ondasetron Odt (Zofran Odt), 4 MG SL Q6H Ranitidine HCl (Ranitidine HCl), 150 MG PO QPM Sertraline (Zoloft), 75 MG PO DAILY Sumatriptan Succinate (Imitrex), 50 MG PO PRN Vitamin E (Vitamin E), 400 MG PO DAILY Zoledronic Acid (Zoledronic Acid), 4 MG PO QPM Allergies Coded Allergies: Tramadol (Verified Allergy, Unknown, HEADACHE,HIVES, 04/12/17) Physical Exam Vital Signs Date Time Temp Pulse Resp B/P (MAP) Pulse Ox O2 Delivery O2 Flow Rate FiO2 04/12/17 20:22 77 18 127/80 98 04/12/17 19:37 73 18 133/77 98 Room Air 04/12/17 17:43 81 18 162/76 98 Room Air 04/12/17 16:23 36.5 80 18 177/94 98 Room Air Physical Exam GENERAL: Patient is in no acute distress. HEENT: No acute trauma, normocephalic atraumatic, mucous membranes moist, no nasal congestion, no scleral icterus. NECK: No stridor, no adenopathy, no meningismus, trachea is midline. LUNGS: Clear to auscultation bilaterally, no wheeze, no rhonchi, breath sounds equal. HEART: Without murmurs gallops or rubs, regular rate and rhythm. BACK: No flank discomfort to percussion. ABDOMEN: Soft, nontender, bowel sounds positive, no hernias, no peritonitis. EXTREMITIES: No cyanosis or edema, full range of motion of all the joints without pain or difficulty, no signs for acute trauma. NEUROLOGIC: Oriented x 3, no acute motor or sensory deficits, no focal weakness. SKIN: No rash, no jaundice, no diaphoresis. Medical Decision & Procedures ER Provider Diagnostic Interpretation: Radiology results as stated below per my review and radiologist interpretation: HEAD CT NONCONTRAST CT DOSE: 623.48 mGy.cm HISTORY: headache, tired TECHNIQUE: Multiaxial CT images of the head were performed without the use of intravenous contrast. Automated exposure control was utilized for this study. A dose lowering technique was utilized adhering to the principles of ALARA. Comparison: Head CT 06/02/2016. Findings: The paranasal sinuses and mastoid air cells are clear. The calvarium and skull base are intact. The ventricles and sulci are within normal limits. There is no mass, hematoma, midline shift, or acute infarct. Impression: No acute intracranial abnormality. Electronically signed by: Raghavendra Jaimes M.D. 04/12/2017 5:45 PM Dictated Date/Time: 04/12/2017 5:38 PM PA CHEST WITH ABDOMINAL SERIES CLINICAL HISTORY: Vomiting. FINDINGS: A PA chest radiograph is compared to study dated 05/30/2014 and correlated with chest CT dated 06/02/2016. The heart is top normal for projection. The pulmonary vascular is noncongested. A large hiatal hernia is identified with associated bibasilar atelectasis. No airspace consolidation is seen typical for pneumonia and there is no large pleural effusion. Chronic interstitial thickening is similar to previous. No pneumothorax is seen. The skeletal structures are osteopenic. The bony thorax is grossly intact. Supine and erect abdominal radiographs are correlated with abdominal CT dated 01/18/2017. There is a nonobstructed abdominal bowel gas pattern. Moderate colonic fecal retention is observed. No evidence of intraperitoneal free air is seen. There are no abnormal abdominal calcifications. There are postoperative changes from L4 to S1 spinal fusion. Mild lumbosacral spondylosis is observed. The lumbosacral spine and bony pelvis appear intact. IMPRESSION: 1. No active disease in the chest. 2. Large hiatal hernia with bibasilar atelectasis. 3. Nonobstructed abdominal bowel gas pattern noting moderate colonic fecal retention. Electronically signed by: Matt Cosby M.D. 04/12/2017 7:56 PM Dictated Date/Time: 04/12/2017 7:53 PM Laboratory Results 04/12/17 16:45 Red Blood Count 4.70, Mean Corpuscular Volume 93.0, Mean Corpuscular Hemoglobin 31.3, Mean Corpuscular Hemoglobin Concent 33.6, Mean Platelet Volume 9.8, Neutrophils (%) (Auto) 63.1, Lymphocytes (%) (Auto) 23.0, Monocytes (%) (Auto) 10.4, Eosinophils (%) (Auto) 2.8, Basophils (%) (Auto) 0.4, Neutrophils # (Auto ) 4.77, Lymphocytes # (Auto) 1.74, Monocytes # (Auto) 0.79, Eosinophils # (Auto ) 0.21, Basophils # (Auto) 0.03 04/12/17 16:45 Test 04/12/17 16:45 04/12/17 17:45 White Blood Count 7.56 K/uL (4.8-10.8) Red Blood Count 4.70 M/uL (4.2-5.4) Hemoglobin 14.7 g/dL (12.0-16.0) Hematocrit 43.7 % (37-47) Mean Corpuscular Volume 93.0 fL (80-100) Mean Corpuscular Hemoglobin 31.3 pg (25-34) Mean Corpuscular Hemoglobin Concent 33.6 g/dl (32-36) Platelet Count 201 K/uL (130-400) Mean Platelet Volume 9.8 fL (7.4-10.4) Neutrophils (%) (Auto) 63.1 % Lymphocytes (%) (Auto) 23.0 % Monocytes (%) (Auto) 10.4 % Eosinophils (%) (Auto) 2.8 % Basophils (%) (Auto) 0.4 % Neutrophils # (Auto) 4.77 K/uL (1.4-6.5) Lymphocytes # (Auto) 1.74 K/uL (1.2-3.4) Monocytes # (Auto) 0.79 K/uL (0.11-0.59) Eosinophils # (Auto) 0.21 K/uL (0-0.5) Basophils # (Auto) 0.03 K/uL (0-0.2) RDW Standard Deviation 45.7 fL (36.4-46.3) RDW Coefficient of Variation 13.4 % (11.5-14.5) Immature Granulocyte % (Auto) 0.3 % Immature Granulocyte # (Auto) 0.02 K/uL (0.00-0.02) Anion Gap 6.0 mmol/L (3-11) Est Creatinine Clear Calc Drug Dose 48.8 ml/min Estimated GFR () 72.8 Estimated GFR (Non- 62.8 BUN/Creatinine Ratio 14.3 (10-20) Lactic Acid Level 0.8 mmol/L (0.4-2.0) Calcium Level 8.9 mg/dl (8.5-10.1) Total Bilirubin 0.3 mg/dl (0.2-1) Aspartate Amino Transf (AST/SGOT) 28 U/L (15-37) Alanine Aminotransferase (ALT/SGPT) 35 U/L (12-78) Alkaline Phosphatase 157 U/L (45-117) Total Protein 7.4 gm/dl (6.4-8.2) Albumin 4.1 gm/dl (3.4-5.0) Globulin 3.3 gm/dl (2.5-4.0) Albumin/Globulin Ratio 1.3 (0.9-2) Urine Color YELLOW Urine Appearance CLEAR (CLEAR) Urine pH 8.0 (4.5-7.5) Urine Specific [place] 1.019 (1.000-1.030) Urine Protein NEG (NEG) Urine Glucose (UA) NEG (NEG) Urine Ketones NEG (NEG) Urine Occult Blood NEG (NEG) Urine Nitrite NEG (NEG) Urine Bilirubin NEG (NEG) Urine Urobilinogen NEG (NEG) Urine Leukocyte Esterase SMALL (NEG) Urine WBC (Auto) 1-5 /hpf (0-5) Urine RBC (Auto) 5-10 /hpf (0-4) Urine Hyaline Casts (Auto) 0 /lpf (0-5) Urine Epithelial Cells (Auto) 10-20 /lpf (0-5) Urine Bacteria (Auto) NEG (NEG) Laboratory results reviewed by me. Medications Administered Medications (Trade) Dose Ordered Sig/Oliver Route Start Time Stop Time Status Last Admin Dose Admin Ondansetron HCl (Zofran Inj) 4 mg NOW STAT IV 04/12/17 16:31 04/12/17 16:38 DC 04/12/17 16:51 4 MG Sodium Chloride 1,000 ml @ 999 mls/hr Q1H1M STAT IV 04/12/17 16:31 04/12/17 17:31 DC 04/12/17 16:51 999 MLS/HR Acetaminophen (Tylenol Tab) 650 mg NOW STAT PO 04/12/17 16:31 04/12/17 16:38 DC 04/12/17 16:56 650 MG Promethazine HCl 12.5 mg/Sodium Chloride 50.5 ml @ 204 mls/hr NOW STAT IV 04/12/17 18:32 04/12/17 18:46 DC 04/12/17 19:03 204 MLS/HR Ondansetron HCl (ZOFRAN ODT 4MG Home Pack) 1 homepack UD ONCE PO 04/12/17 20:15 04/12/17 20:16 DC 04/12/17 20:09 1 HOMEPACK ED Course 1630: The patient was evaluated in room B7. A complete history and physical exam was performed. 1631: Ordered Tylenol Tab 650 mg PO, NSS 1000 ml @ 999 mls/hr IV, Zofran Inj 4 mg IV. 1830: I reevaluated the patient and she vomited again. 183: Ordered Promethazine HCl 12.5 mg/Sodium Chloride 50.5 ml @ 204 mls/hr IV. 1999: Reevaluated the patient and she is resting. Discussed results and discharge instructions: she verbalized understanding and agreement. The patient is ready for discharge. 2015: Ordered Zofran ODT 4MG Home Pack 1 homepack PO. Medical Decision Differential diagnosis includes but is not limited to bacteremia or sepsis, UTI , dehydration, renal failure, electrolyte imbalance, intracranial bleeding, head injury. There is no leukocytosis or concerning anemia. No significant electrolyte abnormality, kidney failure or hepatitis. Lactic acid level is not elevated making sepsis less likely. Blood cultures are pending. Urinalysis does not show evidence for infection, urine culture is pending. Brain CT shows no acute bleed or mass effect. On exam, the patient was not toxic. There was no peritonitis. She was not febrile. The patient received IV saline, IV Zofran. She received oral Tylenol. She was then given IV Phenergan. She feels improved. The cause for her symptoms is unclear. Given the vomiting and diarrhea, I suspect a viral illness. I will give her some Zofran to use for nausea, a bland diet was suggested. If worsening, she can return. She should follow with her doctors office this week for a recheck. She can return here for worsening symptoms. Medication Reconcilliation Current Medication List: was personally reviewed by me Blood Pressure Screening Patient's blood pressure: Elevated blood pressure Blood pressure disposition: Elevated BP felt to be situational Impression Primary Impression: Nausea vomiting and diarrhea Additional Impression: Headache Scribe Attestation The scribe's documentation has been prepared under my direction and personally reviewed by me in its entirety. I confirm that the note above accurately reflects all work, treatment, procedures, and medical decision making performed by me. Departure Information Dispostion Home / Self-Care Prescriptions Ondasetron Odt (ZOFRAN ODT) 4 Mg Tab 4 MG SL Q6H for Nausea, #6 TAB Prov: Matt Centeno M.D. 04/12/17 Referrals No Doctor, Assigned (PCP) RV. Gallagher MD Patient Instructions My [facility] Additional Instructions zofran 1 tab every 6 hours for nausea if needed bland deit---crackers, soup, toast, gatorade rest see amanda reese for a recheck in a day or so return for worsening symptoms lab testing and xrays were all ok today tylenol for pain Problem Qualifiers
[2017-04-12 17:26] LABS: BASO % 0.4 %; BASO ABS # 0.03 K/uL (0-0.2); COMPLETE YES; EOS % 2.8 %; HEMATOCRIT 43.7 % (37-47); IG% 0.3 %; LYMPH ABS # 1.74 K/uL (1.2-3.4); MEAN CORPUSCULAR HEMOGLOBIN 31.3 pg (25-34); MEAN CORPUSCULAR HGB CONC 33.6 g/dl (32-36); MEAN PLATELET VOLUME 9.8 fL (7.4-10.4); MONO % 10.4 %; NEUT % 63.1 %; PLATELET COUNT 201 K/uL (130-400); WHITE BLOOD COUNT 7.56 K/uL (4.8-10.8)
--- NOTE | 2017-04-12 17:46 | DIAGNOSTIC IMAGING REPORT ---
HEAD CT NONCONTRAST CT DOSE: 623.48 mGy.cm HISTORY: headache, tired TECHNIQUE: Multiaxial CT images of the head were performed without the use of intravenous contrast. Automated exposure control was utilized for this study. A dose lowering technique was utilized adhering to the principles of ALARA. Comparison: Head CT 06/02/2016. Findings: The paranasal sinuses and mastoid air cells are clear. The calvarium and skull base are intact. The ventricles and sulci are within normal limits. There is no mass, hematoma, midline shift, or acute infarct. Impression: No acute intracranial abnormality. Electronically signed by: Raghavendra Jaimes M.D. 04/12/2017 5:45 PM Dictated Date/Time: 04/12/2017 5:38 PM
[2017-04-12 17:54] LABS: BUN/CREATININE RATIO 14.3 (10-20); CALCIUM 8.9 mg/dl (8.5-10.1); CREATININE 0.94 mg/dl (0.60-1.20); POTASSIUM 3.6 mmol/L (3.5-5.1)
[2017-04-12 17:57] LABS: ALB/GLOB RATIO 1.3 (0.9-2)
[2017-04-12 18:04] LABS: MANUAL MICROSCOPIC REQUIRED? NO; REVIEW REQ? NO; URINE APPEARANCE CLEAR (CLEAR); URINE BILIRUBIN NEG (NEG); URINE COLOR YELLOW; URINE NITRITE NEG (NEG); URINE SPECIFIC GRAVITY 1.019 (1.000-1.030); UROBILINOGEN NEG (NEG); ZZUR CULT IF INDIC CLEAN CATCH NO
[2017-04-12] MEDS ORDERED: PROMETHAZINE HCL INJ 12.5 MG in SODIUM CHLORIDE 0.9% 50ML 50 ML IV STA (18:32)
--- NOTE | 2017-04-12 19:58 | DIAGNOSTIC IMAGING REPORT ---
PA CHEST WITH ABDOMINAL SERIES CLINICAL HISTORY: Vomiting. FINDINGS: A PA chest radiograph is compared to study dated 05/30/2014 and correlated with chest CT dated 06/02/2016. The heart is top normal for projection. The pulmonary vascular is noncongested. A large hiatal hernia is identified with associated bibasilar atelectasis. No airspace consolidation is seen typical for pneumonia and there is no large pleural effusion. Chronic interstitial thickening is similar to previous. No pneumothorax is seen. The skeletal structures are osteopenic. The bony thorax is grossly intact. Supine and erect abdominal radiographs are correlated with abdominal CT dated 01/18/2017. There is a nonobstructed abdominal bowel gas pattern. Moderate colonic fecal retention is observed. No evidence of intraperitoneal free air is seen. There are no abnormal abdominal calcifications. There are postoperative changes from L4 to S1 spinal fusion. Mild lumbosacral spondylosis is observed. The lumbosacral spine and bony pelvis appear intact. IMPRESSION: 1. No active disease in the chest. 2. Large hiatal hernia with bibasilar atelectasis. 3. Nonobstructed abdominal bowel gas pattern noting moderate colonic fecal retention. Electronically signed by: Matt Cosby M.D. 04/12/2017 7:56 PM Dictated Date/Time: 04/12/2017 7:53 PM
[2017-04-12] MEDS ORDERED: ONDA4TAB10 SL (20:05)
[2017-04-12] MEDS ORDERED: ONDANSETRON HOME PACK 4MG OD TAB PO ONE (20:15)
[2017-04-12 20:22] VITALS: BP 127/80; PULSE 77; O2SAT 98
--- NOTE | 2017-04-14 13:03 | Pharmacy Progress Note ---
ED Pharmacist Progress Note Date of Service: Apr 14, 2017. Spoke with patient for ~10 minutes via phone regarding urine culture results. Reported that sample showed growth of multiple different organisms and that infection was not confirmed but also could not be ruled out. When asked about symptoms, patient reported that she had difficulty walking and that she had a dry mouth. Patient had also seen her PCP prior to her visit here and a urine sample was also obtained there. Counseled that Carlyn should contact her PCP for further guidance/management and determine an appropriate plan for follow- up. Emphasized that Carlyn should contact her PCP multiple times. Carlyn acknowledged understanding.
== END 2017-04-12 20:15 | disposition home or self-care (01) ==
LOC: C.EDB 16:23
DX: R11.2 Nausea with vomiting, unspecified (principal); R19.7 Diarrhea, unspecified; R51 Headache; I10 Essential (primary) hypertension; E78.00 Pure hypercholesterolemia, unspecified; K21.9 Gastro-esophageal reflux disease without esophagitis; F41.9 Anxiety disorder, unspecified; F32.9 Major depressive disorder, single episode, unspecified; Z98.890 Other specified postprocedural states; Z79.82 Long term (current) use of aspirin; Z79.899 Other long term (current) drug therapy; Z88.5 Allergy status to narcotic agent; Z82.49 Family history of ischemic heart disease and other diseases of the circulatory system

== ENCOUNTER → 2017-04-12 | Outpatient (CLI) | payer OTHER ==
[~2017-04-12] MED LIST changes: +ONDA4TAB10 SL
--- NOTE | 2017-04-13 07:48 | MAMMOGRAPHY REPORT ---
BILATERAL DIGITAL SCREENING MAMMOGRAM TOMOSYNTHESIS WITH CAD: 04/12/2017 CLINICAL HISTORY: Routine screening. Patient has no complaints. TECHNIQUE: Breast tomosynthesis in addition to standard 2D mammography was performed. Current study was also evaluated with a Computer Aided Detection (CAD) system. COMPARISON: Comparison is made to exams dated: 04/11/2016 mammogram, 04/09/2015 mammogram, 03/27/2014 mammogram, 03/25/2013 mammogram, 03/20/2012 mammogram, and 02/10/2011 mammogram - [facility]. BREAST COMPOSITION: The tissue of both breasts is heterogeneously dense, which may obscure small mas ses. FINDINGS: The parenchymal pattern is unchanged. No developing mass, architectural distortion or clus ter of suspicious microcalcifications is seen in either breast. IMPRESSION: ACR BI-RADS CATEGORY 2: BENIGN There is no mammographic evidence of malignancy. A 1 year screening mammogram is recommended. The pa tient will receive written notification of the results. Approximately 10% of breast cancers are not detected with mammography. A negative mammographic report should not delay biopsy if a clinically suggestive mass is present. Naomie Zaragoza M.D. ay/:04/12/2017 15:32:41 Machine Heddle Cleaner: Inessa Nunez, [facility] letter sent: Normal 1/2 BI-RADS Code: ACR BI-RADS Category 2: Benign
== END | disposition home or self-care (01) ==
LOC: C.MAMM 12:41
PROVIDERS: ATTEND Internal Medicine
DX: Z12.31 Encounter for screening mammogram for malignant neoplasm of breast (principal)

== ENCOUNTER → 2017-04-12 | Outpatient (CLI) | payer OTHER ==
[2017-04-12 18:15] LABS: URINE APPEARANCE CLEAR (CLEAR); URINE BILIRUBIN NEG (NEG); URINE COLOR YELLOW; URINE EPITHELIAL CELL AUTO 20-30 /lpf (0-5); URINE NITRITE NEG (NEG); URINE PH 6.5 (4.5-7.5); URINE SPECIFIC GRAVITY 1.013 (1.000-1.030); UROBILINOGEN NEG (NEG)
[2017-04-12 18:19] LABS: MANUAL MICROSCOPIC REQUIRED? NO; REVIEW REQ? NO
== END | disposition home or self-care (01) ==
LOC: C.LABSPEC 17:38
PROVIDERS: ATTEND Nurse Practitioner Family
DX: R35.0 Frequency of micturition (principal)

== ENCOUNTER → 2017-05-11 | Outpatient (CLI) | payer OTHER ==
[~2017-05-11] MED LIST changes: +ONDA4TAB10 SL
--- NOTE | 2017-05-11 08:52 | DIAGNOSTIC IMAGING REPORT ---
ULTRASOUND RIGHT UPPER QUADRANT ABDOMEN CLINICAL HISTORY: Elevated serum alkaline phosphatase. COMPARISON STUDY: Abdominal CT dated 01/18/2017. TECHNIQUE: Real-time, grayscale, and color flow sonography of the right upper quadrant of the abdomen was performed. Images are reviewed in the transverse and longitudinal planes. FINDINGS: Liver: The liver is normal in size and echotexture. There is no intrahepatic biliary ductal dilatation. The main portal vein is patent. Gallbladder: The gallbladder is normal in appearance. No gallstones are identified. There is no gallbladder wall thickening or pericholecystic fluid. A sonographic Balderas's sign is reportedly absent. The common bile duct measures up to 0.6 cm in diameter. Pancreas: Visualized portions of the pancreatic head are normal in appearance. The majority of the pancreas is not well visualized. Right kidney: Survey images of the right kidney demonstrate mild cortical atrophy. There is no hydronephrosis. Ascites: None. IMPRESSION: Unremarkable sonographic assessment of the right upper quadrant. No gallstones are identified. Electronically signed by: Matt Cosby M.D. 05/11/2017 8:50 AM Dictated Date/Time: 05/11/2017 8:47 AM
[2017-05-11 09:50] LABS: CALCIUM 8.9 mg/dl (8.5-10.1); CREATININE 0.85 mg/dl (0.60-1.20)
== END | disposition home or self-care (01) ==
LOC: C.ULTR 08:06
PROVIDERS: ATTEND Internal Medicine
DX: R74.8 Abnormal levels of other serum enzymes (principal); M81.0 Age-related osteoporosis without current pathological fracture

== ENCOUNTER → 2017-05-15 | Day surgery (SDC) | payer OTHER ==
[~2017-05-15] VITALS: Ht 149.9 cm; Wt 68.1 kg
[~2017-05-15] MED LIST changes: +ZOLEDRONIC ACID INJ 5 MG in EMPTY BAG 0 ML IV SCH
[2017-05-15 12:14] VITALS: BP 122/83; PULSE 74; TEMP 36.9; O2SAT 96; Ht 149.9 cm; Wt 68.1 kg
[2017-05-15 13:05] LABS: CALCIUM 9.3 mg/dl (8.5-10.1); CREATININE 0.85 mg/dl (0.60-1.20)
== END | disposition home or self-care (01) ==
LOC: C.MTU 11:36
PROVIDERS: ATTEND Internal Medicine
DX: M81.0 Age-related osteoporosis without current pathological fracture (principal)

== ENCOUNTER 2017-08-16 09:22 | Emergency (ER) | payer OTHER ==
[~2017-08-16 09:22] MED LIST changes: -ZOLEDRONIC ACID INJ 5 MG in EMPTY BAG 0 ML IV SCH; -[UNRECOGNIZED DRUG - CODE] PO
[2017-08-16] MEDS ORDERED: XYLOCAINE 1%/SOD BICARB 20 ML VIAL INFIL ONE (09:45)
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
--- NOTE | 2017-08-16 10:36 | EMERGENCY ROOM VISIT NOTE ---
ED Visit Note First contact with patient: 09:32 Patient was seen by our PA/PRESSURE WELDER. I was involved in the patient's care and did evaluate the patient myself. I was involved in the care throughout the ER stay. The patient's laceration has been repaired, she is stable for discharge. She was given wound care instructions.
[2017-08-16 11:15] VITALS: BP 130/87; PULSE 73; TEMP 36.6; O2SAT 97
== END 2017-08-16 11:16 | disposition home or self-care (01) ==
LOC: C.EDB 09:24

== ENCOUNTER 2017-08-30 10:01 | Emergency (ER) | payer OTHER ==
[~2017-08-30] VITALS: Ht 149.9 cm; Wt 70.0 kg
[~2017-08-30 10:01] MED LIST changes: -ONDA4TAB10 SL
[2017-08-30 10:10] VITALS: BP 129/83; PULSE 85; TEMP 36.7; O2SAT 98; Ht 149.9 cm; Wt 70.0 kg
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
== END 2017-08-30 11:39 | disposition home or self-care (01) ==
LOC: C.EDB 10:03 → C.EDC 11:39
DX: S61.511D Laceration without foreign body of right wrist, subsequent encounter (principal); X58.XXXD Exposure to other specified factors, subsequent encounter; I10 Essential (primary) hypertension; F79 Unspecified intellectual disabilities; K21.9 Gastro-esophageal reflux disease without esophagitis; F32.9 Major depressive disorder, single episode, unspecified; E78.00 Pure hypercholesterolemia, unspecified; Z88.6 Allergy status to analgesic agent; Z79.82 Long term (current) use of aspirin

== ENCOUNTER → 2017-09-21 | Outpatient (CLI) | payer OTHER ==
--- NOTE | 2017-09-21 09:49 | DIAGNOSTIC IMAGING REPORT ---
KUB CLINICAL HISTORY: Abdominal bloating pain COMPARISON STUDY: No previous studies for comparison. FINDINGS: The soft tissues, psoas shadows, renal outlines and intestinal gas pattern appear normal. There is no evidence for bowel obstruction. No abnormal abdominal calcifications are seen. IMPRESSION: Normal study. The above report was generated using voice recognition software. It may contain grammatical, syntax or spelling errors. Electronically signed by: Jeffry Ojeda M.D. 09/21/2017 9:48 AM Dictated Date/Time: 09/21/2017 9:47 AM
== END | disposition home or self-care (01) ==
LOC: C.RAD1850 09:29
PROVIDERS: ATTEND Physician Assistant
DX: R14.0 Abdominal distension (gaseous) (principal)

== ENCOUNTER → 2017-10-04 | Outpatient (CLI) | payer OTHER ==
--- NOTE | 2017-10-04 13:11 | DIAGNOSTIC IMAGING REPORT ---
NUCLEAR GASTRIC EMPTYING STUDY HISTORY: Abdominal bloating. Gastroparesis. COMPARISON: KUB 09/21/2017. TECHNIQUE: Following the oral administration of 1.2 mCi of technetium 99m sulfur colloid in egg sandwich and 8 ounces of water, static abdominal images are obtained anteriorly and posteriorly at 0 minutes, 1 hour, 2 hour, and 4 hour time intervals. Gastric emptying was calculated utilizing the geometric mean method. FINDINGS: There is approximately 69% activity remaining at the 1 hour time interval (normal is less than 90%), 51% remaining at the 2 hour time interval (normal is less than 60%), and 11% activity remaining at the 4 hour time interval (normal is less than 10%). Moderate to large hiatus hernia is again noted. IMPRESSION: Borderline delayed gastric emptying at the 4 hour time interval only as described above. Electronically signed by: Raghavendra Jaimes M.D. 10/04/2017 1:10 PM Dictated Date/Time: 10/04/2017 1:08 PM
== END | disposition home or self-care (01) ==
LOC: C.NUCL 08:17
PROVIDERS: ATTEND Physician Assistant
DX: K31.84 Gastroparesis (principal); R14.0 Abdominal distension (gaseous)

== ENCOUNTER → 2017-10-20 | Outpatient (CLI) | payer OTHER ==
--- NOTE | 2017-10-20 10:14 | DIAGNOSTIC IMAGING REPORT ---
GI SERIES W/AIR ROUTINE CLINICAL HISTORY: K44.9 Hiatal [id number] Abdominal bloating COMPARISON STUDY: Gastric emptying study 10/04/2017. Abdomen and pelvis CT 01/18/2017. FLUOROSCOPY TIME: 2 minutes. 22 fluoroscopic spot images. FINDINGS: The patient swallowed barium without difficulty. Moderate hiatus hernia. No gastric ulcerations. The duodenal bulb and duodenal C sweep are within normal limits. Moderate to severe gastroesophageal reflux. Mild esophageal dysmotility. IMPRESSION: 1. Moderate hiatus hernia. 2. Moderate to severe gastroesophageal reflux. Electronically signed by: Raghavendra Jaimes M.D. 10/20/2017 10:13 AM Dictated Date/Time: 10/20/2017 10:10 AM
== END | disposition home or self-care (01) ==
LOC: C.RAD 09:36
PROVIDERS: ATTEND Physician Assistant
DX: K44.9 Diaphragmatic hernia without obstruction or gangrene (principal); R14.0 Abdominal distension (gaseous); K21.9 Gastro-esophageal reflux disease without esophagitis

== ENCOUNTER → 2017-11-13 | Outpatient (CLI) | payer OTHER ==
[2017-11-13 11:07] LABS: BASO % 0.4 %; BASO ABS # 0.02 K/uL (0-0.2); EOS % 2.1 %; HEMATOCRIT 42.9 % (37-47); HEMOGLOBIN 14.6 g/dL (12.0-16.0); LYMPH % 25.7 %; LYMPH ABS # 1.23 K/uL (1.2-3.4); MEAN CELL VOLUME 91.1 fL (80-100); MEAN PLATELET VOLUME 9.7 fL (7.4-10.4); MONO % 17.7 %; MONO ABS # 0.85 K/uL (0.11-0.59); NEUT % 54.1 %; NEUT ABS # 2.59 K/uL (1.4-6.5); PLATELET COUNT 180 K/uL (130-400); RED CELL DISTRIBUTION WIDTH CV 13.7 % (11.5-14.5); WHITE BLOOD COUNT 4.79 K/uL (4.8-10.8)
[2017-11-13 11:39] LABS: ALBUMIN 3.6 gm/dl (3.4-5.0); ALKALINE PHOSPHATASE 127 U/L (45-117); ALT/SGPT 42 U/L (12-78); AST/SGOT 44 U/L (15-37); BLOOD UREA NITROGEN 11 mg/dl (7-18); CALCIUM 8.5 mg/dl (8.5-10.1); CARBON DIOXIDE 27 mmol/L (21-32); CHOLESTEROL 99 mg/dl (0-200); CREATININE 0.82 mg/dl (0.60-1.20); GLUCOSE 100 mg/dl (70-99); LDL CHOLESTEROL CALCULATED 38 mg/dl; POTASSIUM 3.3 mmol/L (3.5-5.1); SODIUM 140 mmol/L (136-145); TOTAL PROTEIN 7.6 gm/dl (6.4-8.2)
== END | disposition home or self-care (01) ==
LOC: C.LAB1850 09:50
PROVIDERS: ATTEND Internal Medicine
DX: E78.5 Hyperlipidemia, unspecified (principal); E55.9 Vitamin D deficiency, unspecified; K21.9 Gastro-esophageal reflux disease without esophagitis; Z86.2 Personal history of diseases of the blood and blood-forming organs and certain disorders involving the immune mechanism; K59.00 Constipation, unspecified

== ENCOUNTER → 2018-02-15 | Outpatient (CLI) | payer OTHER ==
[~2018-02-15] MED LIST changes: +ASPCH81X PO; +ASPI-390 PO; -ASPI81TA28 PO; -ATOR-54 PO; +DOCU-94 PO; +ONDA4TAB46 PO; +PROBIOTIC PO; -SUMA50TA15 PO
== END | disposition home or self-care (01) ==
LOC: C.MAMM 09:33
PROVIDERS: ATTEND Internal Medicine
DX: M81.0 Age-related osteoporosis without current pathological fracture (principal)

== ENCOUNTER 2018-07-05 09:59 | Observation (INO) ==
--- NOTE | 2018-06-13 09:48 | Anesthesiology Consultation ---
Date of Service June 13, 2018 Assessment & Plan (1) Encounter for pre-operative examination: Chart Review Chart Review: Acceptable Risk for Surgery and Patient seen in Pre Admission Testing Teaching & Discussion Pre-Anesthesia Teaching/Discussion Notes: Instructed NPO after midnight before surgery,except medications with 15 cc of water. Medication instructions provided according to the PAT guidelines. History Surgery Operation Date: 07/05/18 12:00 Proposed Procedures p Laparoscopic Hiatal Hernia Repair with Toupet Fundoplication, Laparoscopic Repair of Ventral Hernia - Eric Hess DO Height/Weight Height: 4 ft 11 in Weight: 68.9 kg Allergies Allergy/AdvReac Type Severity Reaction Status Date / Time tramadol Allergy Unknown HEADACHE,HI Verified 06/08/18 13:32 VES Medications Home Medications Medication Instructions Recorded Confirmed Last Taken albuterol sulfate 2 puff INHALATION Q6H PRN 03/13/18 06/08/18 Unknown aspirin [Aspir-81] 81 mg PO DAILY 03/13/18 06/08/18 Unknown cholecalciferol (vitamin D3) 2,000 unit PO DAILY 03/13/18 06/08/18 Unknown [Vitamin D3] docusate sodium 100 mg PO DAILY 03/13/18 06/08/18 Unknown esomeprazole magnesium 20 mg PO QAM 03/13/18 06/08/18 Unknown fluticasone [Flonase Allergy 1 spray INTRANASAL BID 03/13/18 06/08/18 Unknown Relief] lactobacillus combination no.4 3,000 mmu cells PO DAILY 03/13/18 06/08/18 Unknown [Probiotic] ranitidine HCl 150 mg PO HS 03/13/18 06/08/18 Unknown sertraline [Zoloft] 75 mg PO HS 03/13/18 06/08/18 Unknown vitamin E 400 unit PO DAILY 03/13/18 06/08/18 Unknown multivitamin with minerals 1 tab PO DAILY 06/08/18 06/08/18 Unknown [Hair,Skin and Nails] Past Medical History Medical History Acid reflux Asthma STABLE Depression Hiatal hernia Obesity Ventral hernia Past Surgical History Surgical History History of back surgery History of esophagogastroduodenoscopy (EGD) 12/26/17= MAC sedation at [facility] History of hysterectomy History of tooth extraction Past Anesthesia History No Hx of Anesthesia Complications and No Family Hx of Anesthesia Complications History of PONV No Motion Sickness Screening History of Motion Sickness: No Social History Smoking Status: Never smoker Do You Dip or Chew Tobacco: No Hx Alcohol Use: No Hx Substance Use: No substance use type: does not use Exercise / Class Metabolic Activity III < 4 Walking/Shop/Light housework Review of Systems Intermittent dyspnea on exertion felt 2/2 to hiatal hernia (reason for procedure ). Patient denies chest pain, shortness of breath, cough, wheezing, palpitations. Physical Exam Vital Signs VITALS BP 122/75 P 71 TEMP 98.1 SP02 97%RA RESP 18 Full neck and c-spine range of motion. Full TMJ range of motion. TMD 3.5 finger breaths Mallampati Score 1 Dentition: partials upper/lower Lungs: clear throughout to auscultation Cardiac: regular rate and rhythm, no murmurs noted Spine: normal Carotid arteries: negative bruit Extremities: no edema Testing Electrocardiogram Date: 06/13/18 Findings: + NSR @ (71) Laboratory Results 06/13/18 09:55 Blood Type O Positive 06/13/18 09:55 Antibody Screen NEGATIVE 06/13/18 09:55 05/16/18 SODIUM 141 POTASSIUM 4.0 CHLORIDE 106 CO2 30 BUN 15 CREATININE 0.85 GLUCOSE 100
--- NOTE | 2018-06-13 09:53 | PAT Medication Instructions ---
Medication Instructions Date of Service June 13, 2018 Home Medications albuterol sulfate 2 puff INHALATION Q6H PRN aspirin [Aspir-81] 81 mg PO DAILY cholecalciferol (vitamin D3) 2,000 unit PO DAILY docusate sodium 100 mg PO DAILY esomeprazole magnesium 20 mg PO QAM fluticasone [Flonase Allergy 1 spray INTRANASAL BID lactobacillus combination no.4 3,000 mmu cells PO DAILY ranitidine HCl 150 mg PO HS sertraline [Zoloft] 75 mg PO HS vitamin E 400 unit PO DAILY multivitamin with minerals 1 tab PO DAILY ASK your prescriber and surgeon aspirin [Aspir-81] 81 mg PO DAILY STOP taking 2 weeks before surgery (or as soon as possible if surgery is within 2 weeks) vitamin E 400 unit PO DAILY DO NOT take the morning of surgery cholecalciferol (vitamin D3) 2,000 unit PO DAILY docusate sodium 100 mg PO DAILY lactobacillus combination no.4 3,000 mmu cells PO DAILY multivitamin with minerals 1 tab PO DAILY Take morning of surgery With a small sip of water, OTHERWISE NOTHING TO EAT OR DRINK AFTER MIDNIGHT: albuterol sulfate 2 puff INHALATION Q6H PRN (use if needed; please bring with you to hospital day of surgery if possible) esomeprazole magnesium 20 mg PO QAM fluticasone [Flonase Allergy 1 spray INTRANASAL BID Take evening before surgery albuterol sulfate 2 puff INHALATION Q6H PRN (if needed) fluticasone [Flonase Allergy 1 spray INTRANASAL BID ranitidine HCl 150 mg PO HS sertraline [Zoloft] 75 mg PO HS Other Notes If you have any questions please call us at [phone] or [phone] or [phone] or [phone]
[2018-06-13 10:15] LABS: Basophils # (auto) 0.03 K/uL (0-0.2); Basophils % (auto) 0.4 %; Eosinophils # (auto) 0.17 K/uL (0-0.5); Eosinophils % (auto) 2.2 %; Hematocrit (blood only) 44.1 % (37-47); Hemoglobin 14.4 g/dL (12.0-16.0); Immature Granulocytes # (auto) 0.01 K/uL (0.00-0.02); Immature Granulocytes % (auto) 0.1 %; Lymphocytes # (auto) 1.64 K/uL (1.2-3.4); Lymphocytes % (auto) 21.4 %; Mean Corpuscular Hgb Conc 32.7 g/dL (32-36); Mean Corpuscular Volume 94.6 fL (80-100); Mean Platelet Volume 9.6 fL (7.4-10.4); Monocytes % (auto) 10.4 %; Neutrophils # (auto) 5.01 K/uL (1.4-6.5); Neutrophils % (auto) 65.5 %; Platelet Count 207 K/uL (130-400); RDW Coefficient of Variation 13.8 % (11.5-14.5); Red Blood Count 4.66 M/uL (4.2-5.4); White Blood Count 7.66 K/uL (4.8-10.8)
[~2018-07-05 09:59] MED LIST changes: -ASPCH81X PO; -ASPI-390 PO; +CEFAZOLIN 2000MG 2,000 MG/15 ML SYR IV SCH; -CHOL2000 PO; -DOCU-94 PO; -ESOM20CA PO; -FERR325T5 PO; -FLUT0.15 NAE; +HEPARIN SOD 5,000 UNIT/0.5 ML VIAL SQ SCH; +LR 15ML/HR IV SCH; -ONDA4TAB46 PO; -PROBIOTIC PO; -SERT50TA PO; -VITA200C5 PO; -VNTHFA/IN INH; -ZNT150 PO
[2018-07-05] MEDS ORDERED: fentaNYL citrate 100 MCG/2 ML VIAL ONE ×2 (11:53)
[2018-07-05] MEDS ORDERED: MIDAZOLAM HCL 1 MG/ML 2ML VIAL ONE (11:53)
--- NOTE | 2018-07-05 12:00 | History & Physical Bridge Note ---
Date of Service July 05, 2018 History & Physical Bridge Note I have examined the patient, reviewed the History & Physical and in the interval since the performance of the History & Physical I have noted the following changes of clinical significance: no changes noted
[2018-07-05] MEDS ORDERED: FLUMAZENIL 0.1 MG/1 ML 10 ML VIAL IV PRN (12:13)
[2018-07-05] MEDS ORDERED: BUPIVACAINE/EPINEPHRINE 0.5% MPF 1:200,000 30 ML VIAL ONE (12:13)
[2018-07-05] MEDS ORDERED: HYDROmorphone INJ 1 MG/ML SYRINGE IV PRN (12:13)
[2018-07-05] MEDS ORDERED: ATROPINE SULFATE 0.1 MG/ML 10ML SYR IV PRN (12:13)
[2018-07-05] MEDS ORDERED: ONDANSETRON INJ 2 MG/ML 2 ML VIAL IV PRN ×2 (12:13→16:23)
[2018-07-05] MEDS ORDERED: ePHEDrine sulfate 50 MG/ML AMP IV PRN (12:13)
[2018-07-05] MEDS ORDERED: LABETALOL HCL IV 5 MG/ML 20ML IV PRN (12:13)
[2018-07-05] MEDS ORDERED: NALOXONE HCL 0.4 MG/1 ML VIAL/CARP IV PRN (12:13)
[2018-07-05] MEDS ORDERED: ONDANSETRON INJ 2 MG/ML 2 ML VIAL ONE (12:20)
[2018-07-05] MEDS ORDERED: DEXAMETHASONE SOD INJ 4 MG/ML VIAL ONE (12:20)
[2018-07-05] MEDS ORDERED: LABETALOL HCL IV 5 MG/ML 20ML IV ONE (13:36)
[2018-07-05] MEDS ORDERED: NEOSTIGMINE METHYLSULFATE 5 MG/5 ML SYR ONE (13:58)
[2018-07-05] MEDS ORDERED: PROPOFOL IV EMULSION 10 MG/ML 20 ML VIAL IV ONE (13:58)
[2018-07-05] MEDS ORDERED: ROCURONIUM BROMIDE 10 MG/ML 5 ML VIAL ONE (13:58)
[2018-07-05] MEDS ORDERED: GLYCOPYRROLATE 0.2 MG/ML VIAL ONE (13:58)
[2018-07-05] MEDS ORDERED: LIDOCAINE HCL 2% 2 ML VIAL/AMP(20MG/ML) INFIL ONE (13:58)
--- NOTE | 2018-07-05 14:44 | Operative Report ---
Post Operative Report Pre & Post Diagnosis Operation Date: 07/05/18 12:00 Pre-Op Diagnosis: Hiatal Hernia, Ventral Hernia;gerd Post-Op Diagnosis: Hiatal Hernia, Ventral Hernia;gerd Procedure Operation Date: 07/05/18 12:00 Actual Procedures p Laparoscopic Hiatal Hernia Repair with Toupet Fundoplication; gastropexy; Repair of Ventral Hernia(Not Applicable) - Eric Hess DO Surgeon Eric Hess DO Centrifuge Separator Tender donna [place] Estimated Blood Loss 10 Findings Consistent with Post-Op Diagnosis Specimens none Description of Procedure After informed consent was obtained the patient was taken to the operating room and placed in a supine position. After successful intubation the abdomen was sterilely prepped and draped in usual fashion. A supraumbilical incision was made with an 11 blade scalpel and carried down through the soft tissue using electrocautery. Anterior rectus fascia was opened using electrocautery and 2 # 0 Vicryl stay sutures were placed. Peritoneum was entered using blunt finger penetration and a finger sweep was performed. A 12 mm Paredes trocar was placed in the abdomen was insufflated to 18 mmHg. Laparoscope was inserted and the abdomen was examined. A left upper quadrant 12 mm port a right upper quadrant 5 mm port a right flank 5 mm port in the left flank 5 mm port were all placed under direct vision. The patient was then placed in a steep reverse Trendelenburg position. A liver retractor was used throughout the case to carpenter helper our exposure. There was a very large hiatal hernia with probably 1/3-1/2 of the stomach incarcerated within it. We were able to gently use traction and reduce it. Began along the lateral side of the stomach took down the top 4 or 5 short gastric vessels with the sonocision. This led us into the hernia sac which we continued to take down up around the left crew the diaphragm anteriorly. We continued to use blunt dissection, traction and small amounts of harmonic scalpel to take down this hernia sac. Once we had this part done we had anesthesia advance a 50 [place] bougie so that we could readily identify the esophagus. This passed without difficulty. Next we took down the hernia sac along the medial side of the stomach by following the right crew superiorly and anteriorly. Eventually we had the hernia sac down in 360 degrees in the stomach stayed self reduced within the abdominal cavity and the GE junction was right at the level of the diaphragm where it should be. We then were able to create a posterior window just superior to the left gastric vessels. I was able to use an Endo Stitch device with O Surgidac to primarily close the hiatal hernia defect with several stitches posteriorly and followed by several sutures superiorly. Once we had the defect primarily closed I felt that we would not need a mesh. It was sufficiently loose to get a primary repair. Next we used a reticulating grasper to come through the previously made gastric window. I was able to grasp the fundus of the stomach and bring it through that window. I performed a "shoeshine test " easily. I then placed a gastropexy stitch from the fundus of the stomach to the right crew the diaphragm. After I did this I then secured the wrap anteriorly to the pre- esophageal fascia as well as a small amount of the esophagus itself. I used several stitches on the medial side and several stitches on the lateral side to create a 270 degree toupee fundoplication. The wrap was nice and loose and floppy. There was adequate hemostasis. We were able to easily remove the bougie. I looked around the remainder of the abdomen with the only finding showing a small incisional hernia the above the umbilicus. Unfortunately we would not be able to reach this through the camera port. We therefore removed all the trochars and desufflated the abdomen. I made another small incision right over the umbilicus and carried this down through the soft tissue using cautery. This exposed a small 1 cm hernia. I was able to reduce the preperitoneal fat and captured within it. I then closed the defect using 0 Vicryl in a interrupted [id number] fashion. The fascia the camera port was then also closed using 0 Vicryl in a [id number] fashion. All the wounds were thoroughly irrigated and closed using 4-0 Monocryl. Marcaine was injected around for postoperative analgesia and skin glue used as a dressing. The patient was awakened extubated and transferred recovery in stable condition. My physician trust operations assistant was present for the entire case. He helped with exposure. He helped with running the camera as well as retracting throughout my dissection. He also helped with wound closure and dressing placement. I attest to the content of the Intraoperative Record and any orders documented therein. Any exceptions are noted below.
[2018-07-05] MEDS ORDERED: PROMETHAZINE HCL 12.5 MG in SODIUM CHLORIDE 0.9% 50 ML IV ONE (15:00)
--- NOTE | 2018-07-05 15:47 | Anesthesiology Progress Note ---
Date of Service July 05, 2018 Anesthesia Post Procedure Vital Signs Vital Signs: Temp Pulse Pulse Resp BP Pulse Ox 07/05/18 15:25 36.2 C L 64 12 137/77 96 07/05/18 15:15 64 10 L 131/71 99 07/05/18 15:05 67 26 H 167/89 H 100 07/05/18 14:55 74 30 H 147/88 H 100 07/05/18 14:46 36.3 C L 85 28 H 154/86 H 99 07/05/18 10:31 36.8 C 80 18 153/81 H 98 Pain Intensity Abdomen: Pain Intensity: 4 Notes Mental Status: alert / awake / arousable Patient Amnestic to Procedure: Yes Nausea / Vomiting: adequately controlled Pain: adequately controlled Airway Patency, RR, SpO2: stable & adequate BP & HR: stable & adequate Hydration State: stable & adequate Anesthetic Complications: no major complications apparent
[2018-07-05] MEDS ORDERED: MoRPHine SULFATE 4 MG/ML 1 ML CARP\\VIAL IV PRN (16:23)
[2018-07-05] MEDS ORDERED: ALBUTEROL HFA 8 GM INHALER INH PRN (16:23)
[2018-07-05] MEDS ORDERED: MoRPHine SULFATE 2 MG/ML CARP IV PRN (16:23)
[2018-07-05] MEDS ORDERED: HYDROCODONE/ACETAMOPHEN 5/325MG TAB PO PRN (16:23)
[2018-07-05] MEDS ORDERED: LACTATED RINGER'S 1,000 ML IV SCH (18:15)
[2018-07-05] MEDS: FLUTICASONE PROPIONATE NA SPR 16 GM BTL NAE SCH (20:54)
[2018-07-05] MEDS ORDERED: SERTRALINE HCL 50 MG TABLET PO SCH (21:00)
[2018-07-05] MEDS ORDERED: PNEUMOCOCCAL ADMINISTRATION CHARGE ONE (22:00)
[2018-07-05] MEDS ORDERED: PNEUMOCOCCAL POLYSACCHARIDES 25 MCG/0.5 ML VIAL/SYR IM ONE (22:00)
[2018-07-06] MEDS ORDERED: ACETAMINOPHEN 325 MG TAB PO PRN (07:05)
--- NOTE | 2018-07-06 07:51 | Surgery Progress Note ---
Date of Service July 06, 2018 Assessment & Plan (1) Hiatal hernia: POD 1 lap repair doing well, minimal pain full liquids, home today as above. doing well/no complaints sammie liquids. ok for d/c later today Subjective nausea last evening resolved, wants to go home Physical Exam 2 Vital Signs (Past 24 Hours): Last Vital Signs Temp 37.2 C 07/06/18 07:36 Pulse 85 07/06/18 07:36 Resp 16 07/06/18 07:36 BP 132/84 07/06/18 07:36 Pulse Ox 94 07/06/18 07:36 Gastrointestinal (Abdomen): Inspection/Auscultation: abdomen not distended Percussion/Palpation: abdomen soft
--- NOTE | 2018-07-06 07:58 | Anesthesiology Progress Note ---
Date of Service July 06, 2018 Anesthesia Post Procedure Vital Signs Vital Signs: Temp Pulse Pulse Pulse Pulse Resp BP 07/06/18 07:36 37.2 C 85 16 07/06/18 03:41 37.1 C 100 H 17 07/05/18 23:05 37.3 C 101 H 15 07/05/18 19:06 36.4 C L 97 H 17 07/05/18 17:53 36.4 C L 86 07/05/18 17:08 36.5 C 73 16 07/05/18 16:35 36.4 C L 74 14 138/83 07/05/18 16:05 36.4 C L 74 12 138/85 07/05/18 15:35 57 L 19 125/71 07/05/18 15:25 36.2 C L 64 12 137/77 07/05/18 15:15 64 10 L 131/71 07/05/18 15:05 67 26 H 167/89 H 07/05/18 14:55 74 30 H 147/88 H 07/05/18 14:46 36.3 C L 85 28 H 154/86 H 07/05/18 10:31 36.8 C 80 18 153/81 H BP Pulse Ox 07/06/18 07:36 132/84 94 07/06/18 03:41 129/76 93 07/05/18 23:05 126/76 92 07/05/18 19:06 125/84 93 07/05/18 17:53 156/97 H 98 07/05/18 17:08 121/78 93 07/05/18 16:35 98 07/05/18 16:05 96 07/05/18 15:35 100 07/05/18 15:25 96 07/05/18 15:15 99 07/05/18 15:05 100 07/05/18 14:55 100 07/05/18 14:46 99 07/05/18 10:31 98 Notes Mental Status: alert / awake / arousable and participated in evaluation Patient Amnestic to Procedure: Yes Nausea / Vomiting: adequately controlled Pain: adequately controlled Airway Patency, RR, SpO2: stable & adequate BP & HR: stable & adequate Hydration State: stable & adequate Anesthetic Complications: no major complications apparent and Pt Satisfied with anesthetic care
[2018-07-06] MEDS ORDERED: ASPIRIN 81 MG ECTAB PO SCH (09:00)
[2018-07-06] MEDS: FLUTICASONE PROPIONATE NA SPR 16 GM BTL NAE SCH (09:33)
--- NOTE | 2018-07-10 18:50 | Discharge Summary ---
PRIMARY DISCHARGE DIAGNOSES: 1. Hiatal hernia. 2. Ventral hernia. 3. Gastroesophageal reflux disease. PROCEDURE PERFORMED: Laparoscopic hiatal hernia repair with Toupet fundoplication, gastropexy, and repair of ventral hernia. HOSPITAL COURSE: The patient is a 68-year-old female with large symptomatic hiatal hernia and reflux taken to the operating room for laparoscopic repair. The procedure was well tolerated. She was transferred to the surgical floor for overnight observation. She was kept on clear liquids overnight. On postoperative day 1, she was able to tolerate full liquid diet. She was tolerating oral analgesics. Her abdomen was soft. Incisions were clean and dry. She was stable for discharge. DISCHARGE INSTRUCTIONS: Discharge home. Follow up with Dr. Hess in 2 weeks. Continue a liquid diet. DISCHARGE MEDICATIONS: [place] 1-2 tablets every 4 hours as needed, Zofran 4 mg p.o. q. 6 hours as needed. Resume her home medications daily probiotic, Nexium 20 mg, daily ranitidine 150 mg at bedtime, Zoloft 75 mg at bedtime, vitamin E supplement, daily multivitamin, docusate sodium 100 mg daily, vitamin D3 2000 units daily, aspirin 81 mg daily, albuterol 2 puffs as needed.
== END 2018-07-06 10:35 | disposition home or self-care (01) ==
LOC: ASU 09:59 → 3W 09:59